=== PATIENT | female | born 1955 | race Caucasian/White ===

== ENCOUNTER → 2016-09-29 | Outpatient (CLI) | payer MEDICARE, OTHER ==
[~2016-09-29] MED LIST: ALIGN4 M1 PO; AMITRIPTYLINE100 MG ORAL; AMITRIPTYLINE25 MG PO; ASPIRIN EC81 MG PO; ATARAX25 MG ORAL; BACLOFEN10 MG ORAL; CRESTOR20 MG ORAL; CRESTOR40 MG ORAL; CYCLOBENZAPRINE10 MG PO; ETODOLAC400 MG PO; HYDROCORTISONE28 G5 TP; HYZAAR PO; LORATADINE10 M2 PO; NEXIUM40 MG PO; OMEPRAZOLE40 M1 ORAL; PRAVACHOL80 MG PO; RELAFEN750 MG PO
[2016-09-29 11:52] LABS: BASOPHILS % (AUTO) 0.7 % (0.0-2.0); EOSINOPHILS % (AUTO) 0.6 % (0.0-3.0); LYMPHOCYTES % (AUTO) 28.4 % (20.0-45.0); MEAN CORPUSCULAR HEMOGLOBIN 29.8 PG (27.0-31.0); MEAN CORPUSCULAR HGB CONC 32.5 G/DL (32.0-36.0); MEAN CORPUSCULAR VOLUME 92 FL (80-99); MEAN PLATELET VOLUME 7.9 FL (6.5-10.1); MONOCYTES % (AUTO) 5.7 % (1.0-10.0); NEUTROPHILS % (AUTO) 64.6 % (45.0-75.0); PLATELET COUNT 288 K/UL (150-450); RED CELL DISTRIBUTION WIDTH 12.3 % (11.6-14.8); WHITE BLOOD COUNT 9.2 K/UL (4.8-10.8)
[2016-09-29 12:01] LABS: ALANINE AMINOTRANSFERASE 11 U/L (3-33); ALBUMIN/GLOBULIN RATIO 1.2 (1.0-2.7); ANION GAP 11 (5-15); ASPARTATE AMINO TRANSFERASE 18 U/L (5-40); CALCIUM 9.2 mg/dL (8.6-10.2); CARBON DIOXIDE 33 mEQ/L (20-30); CHLORIDE 96 mEQ/L (98-107); CHOLESTEROL 238 mg/dL (< 200); CHOLESTEROL/HDL RATIO 4.5 (3.3-4.4); CREATININE 0.8 mg/dL (0.5-0.9); GLOMERULAR FILTRATION RATE > 60 mL/min (>60); HEMOLYSIS 6; LDL CHOLESTEROL (CALC.) 146 mg/dL (60-99); POTASSIUM 4.3 mEQ/L (3.4-4.9); SODIUM 140 mEQ/L (135-145); TOTAL PROTEIN 7.3 g/dL (6.6-8.7)
[2016-09-29 12:03] LABS: HEMOGLOBIN A1C 5.4 % (< 6.0)
[2016-09-29 12:06] LABS: APPEARANCE,URINE CLOUDY; KETONES,URINE NEGATIVE (NEGATIVE); LEUKOCYTE ESTERASE ,URINE NEGATIVE (NEGATIVE); NITRITE,URINE NEGATIVE (NEGATIVE); PH,URINE 8 (4.5-8.0); PROTEIN,URINE NEGATIVE (NEGATIVE); UROBILINOGEN,URINE NORMAL MG/DL (0.0-1.0)
[2016-09-29 12:19] LABS: AMORPHOUS SEDIMENT,UR MODERATE /LPF; BACTERIA,URINE FEW /HPF; RBC,URINE 0-2 /HPF (0 - 2); SQUAMOUS EPITHELIAL CELL,UR FEW /LPF (NONE/OCC); WBC,URINE 0-2 /HPF (0 - 2)
== END | disposition home or self-care (01) ==
LOC: LAB 11:18
DX: I10 Essential (primary) hypertension (principal); E78.2 Mixed hyperlipidemia
CPT/HCPCS: 36415; 80053; 80061; 81001; 83036; 85025

== ENCOUNTER 2016-12-18 18:07 | Emergency (ER) | payer MEDICARE, OTHER ==
[~2016-12-18] VITALS: Ht 160 cm; Wt 72.6 kg
[2016-12-18] MEDS ORDERED: Vancomycin 1 GM in NS 275 ML IV ONE (18:30)
[2016-12-18] MEDS ORDERED: Piperacillin/Tazobactam 3.375 GM in NS 110 ML IV ONE (18:30)
[2016-12-18] MEDS ORDERED: Azithromycin 500 MG in NS 275 ML IV ONE (18:30)
[2016-12-18] MEDS ORDERED: Clindamycin 150mg cap ORAL STA (18:38)
--- NOTE | 2016-12-18 18:47 | Emergency Room Report ---
History of Present Illness General Chief Complaint: General Complaint Source: Patient Present Illness HPI The patient presents with several problems. One is that she has upper respiratory illness with green phlegm. She also has R ear pain and a sore throat with some dental pain. The pain was 11/10 yesterday but is slightly better today. She also has been wheezing a little bit. She has used an inhaler before, but not now and sometimes smokes. Has nebulizer at home. Had deep cleaning of teeth and treated with BID antibiotics 11/13- in [place]. She recently traveled back from [facility] and right ear November 3. 3 days ago she started having some redness and swelling on her left ankle area. This is swelling or calf. This is a stinging pain. Never had blood clots before. Bruising inner L elbow. No known trauma. She denies any chest pain. No NVD, dysuria. Allergies: Coded Allergies: CIPROFLOXACIN (Verified Allergy, Anaphylaxis, 06/25/12) Patient History Past Medical History: see triage record Social History: Reports: smoking Social History Narrative disabled Reviewed Nursing Documentation: PMH: Agreed, PSxH: Agreed Nursing Documentation-PMH Hx Cardiac Problems: Yes Hx Hypertension: Yes Hx Cancer: No Hx Gastrointestinal Problems: Yes Hx Neurological Problems: Yes - MIGRAINES Hx Dizziness: Yes Review of Systems All Other Systems: negative except mentioned in HPI Physical Exam Vital Signs Date Time Temp Pulse Resp B/P Pulse Ox O2 Delivery O2 Flow Rate FiO2 12/18/16 18:11 97.9 89 20 164/106 96 Room Air Sp02 EP Interpretation: reviewed, normal, other - slightly low, but smoker General Appearance: well appearing, no apparent distress, GCS 15 Head: normocephalic Eyes: bilateral eye PERRL, bilateral eye normal inspection ENT: normal pharynx, moist mucus membranes - poor dentition, other - R TM with fluid, no erythema but opaque, L normal Neck: supple, no meningismus Respiratory: no respiratory distress, wheezing, expiration Cardiovascular #1: regular rate, rhythm, no edema Cardiovascular #2: 2+ radial (R) Gastrointestinal: normal inspection, normal bowel sounds, non tender, no mass, non-distended Musculoskeletal: digits/nails normal, gait/station normal, normal range of motion, no calf tenderness, Karla's Sign negative, inflammation - see skin Neurologic: alert, oriented x3, grossly normal Psychiatric: mood/affect normal Skin: normal color, other - erythema medial maleolus with TTP. Areas of some possible bruising L inner elbow. Medical Decision Making Diagnostic Impression: Primary Impression: Otitis media Qualified Codes: H66.001 - Acute suppurative otitis media without spontaneous rupture of ear drum, right ear Additional Impressions: Bronchospasm Superficial phlebitis ER Course Patient with URI sy and ear pain with lesion L ankle and possible bruising. Complicated patient with need to exclude cardiac asthma. Doubt SBE. DDx: bronchitis, pneumonia, asthma, otitis, superficial phlebitis versus cellulitis. No evidence of DVT on exam. Need to exclude coagulopathy. Patient needs treatment for bronchospasm. Clearly R ear infection and indication for antibiotics. Need to cover URI and possible cellulitis of L ankle. EKG normal. CXR no infiltrates. Labs unremarkable. No eosinophilia, doubt steroids would help. Improved with treatment. + cough. Patient stable for outpatient observation and treatment. Laboratory Tests Test 12/18/16 18:15 12/18/16 18:45 Urine Color Yellow Urine Appearance Clear Urine pH 5 (4.5-8.0) Urine Specific [place] 1.030 (1.005-1.035) Urine Protein Negative (NEGATIVE) Urine Glucose (UA) Negative (NEGATIVE) Urine Ketones 1+ (NEGATIVE) H Urine Occult Blood Negative (NEGATIVE) Urine Nitrite Negative (NEGATIVE) Urine Bilirubin 1+ (NEGATIVE) H Urine Ictotest Negative Urine Urobilinogen 1 MG/DL (0.0-1.0) H Urine Leukocyte Esterase 1+ (NEGATIVE) H Urine RBC 0-2 /HPF (0 - 2) Urine WBC 2-4 /HPF (0 - 2) Urine Squamous Epithelial Cells Few /LPF (NONE/OCC) Urine Bacteria Few /HPF (NONE) Urine Yeast Few /HPF (NONE) H White Blood Count 8.1 K/UL (4.8-10.8) Red Blood Count 4.35 M/UL (4.20-5.40) Hemoglobin 14.0 G/DL (12.0-16.0) Hematocrit 39.6 % (37.0-47.0) Mean Corpuscular Volume 91 FL (80-99) Mean Corpuscular Hemoglobin 32.1 PG (27.0-31.0) H Mean Corpuscular Hemoglobin Concent 35.3 G/DL (32.0-36.0) Red Cell Distribution Width 11.5 % (11.6-14.8) L Platelet Count 233 K/UL (150-450) Mean Platelet Volume 7.7 FL (6.5-10.1) Neutrophils (%) (Auto) 56.7 % (45.0-75.0) Lymphocytes (%) (Auto) 35.1 % (20.0-45.0) Monocytes (%) (Auto) 6.2 % (1.0-10.0) Eosinophils (%) (Auto) 0.9 % (0.0-3.0) Basophils (%) (Auto) 1.0 % (0.0-2.0) Prothrombin Time 9.8 SEC (9.30-11.50) Prothrombin Time INR 1.0 (0.9-1.1) PTT 28 SEC (23-33) Sodium Level 143 mEQ/L (135-145) Potassium Level 3.5 mEQ/L (3.4-4.9) Chloride Level 101 mEQ/L (98-107) Carbon Dioxide Level 29 mEQ/L (20-30) Anion Gap 13 (5-15) Blood Urea Nitrogen 14 mg/dL (7-23) Creatinine 0.9 mg/dL (0.5-0.9) Estimate Glomerular Filtration Rate > 60 mL/min (>60) Glucose Level 132 mg/dL (74-106) H Calcium Level 8.9 mg/dL (8.6-10.2) Total Bilirubin 0.2 mg/dL (0.0-1.2) Aspartate Amino Transferase (AST) 19 U/L (5-40) Alanine Aminotransferase (ALT) 13 U/L (3-33) Alkaline Phosphatase 91 U/L (35-104) Total Creatine Kinase 99 U/L (26-140) Troponin I < 0.30 ng/mL (<=0.30) Total Protein 6.9 g/dL (6.6-8.7) Albumin 3.7 g/dL (3.5-5.2) Globulin 3.2 g/dL Albumin/Globulin Ratio 1.1 (1.0-2.7) EKG Diagnostic Results Rate: normal Rhythm: NSR ST Segments: no acute changes - incomplete RBBB Rhythm Strip Diag. Results EP Interpretation: yes Rhythm: NSR, no PVC's, no ectopy Chest X-Ray Diagnostic Results EP Interpretation: Yes Findings: no consolidation, no effusion, no pneumothorax, no acute cardiopulmonary disease Number of Views: 1 Last Vital Signs Date Time Temp Pulse Resp B/P Pulse Ox O2 Delivery O2 Flow Rate FiO2 12/18/16 22:03 97.9 84 21 124/73 98 Room Air Status: improved Disposition: HOME, SELF-CARE Condition: Improved Scripts Chlorpheniramine Maleate (CHLOR-TRIMETON) 4 Mg Tablet 4 MG PO Q6HR Y for ear pain or congestion, #10 TAB Prov: Bob Cha M.D. 12/18/16 Albuterol Sulfate* (ALBUTEROL SULFATE HHN*) 2.5 Mg/3 Ml Vial.neb 2.5 MG HHN Q4H Y for Shortness of Breath, #25 VIAL Prov: Bob Cha M.D. 12/18/16 Albuterol Sulfate* (ALBUTEROL SULFATE MDI*) 8.5 Gm Hfa.aer.ad 2 PUFF INH Q6H, #1 EA 0 Refills Prov: Bob Cha M.D. 12/18/16 Guaifenesin/Codeine Phos* (ROBITUSSIN AC*) 118 Ml Liquid 1 TSP ORAL Q6H Y for For Cough, #118 ML 0 Refills Prov: Bob Cha M.D. 12/18/16 Levofloxacin* (LEVAQUIN*) 500 Mg Tablet 500 MG ORAL DAILY, #7 TAB Prov: Bob Cha M.D. 12/18/16 Bob Cha M.D. December 18, 2016 18:47
[2016-12-18] MEDS ORDERED: Albuterol ud Inhalation HHN ONE (19:00)
[2016-12-18] MEDS ORDERED: Ipratropium 0.02% Inh Soln 2.5ml UD HHN ONE (19:00)
[2016-12-18 19:05] VITALS: BP 151/81
[2016-12-18 19:15] LABS: EOSINOPHILS % (AUTO) 0.9 % (0.0-3.0); LYMPHOCYTES % (AUTO) 35.1 % (20.0-45.0); MEAN CORPUSCULAR HEMOGLOBIN 32.1 PG (27.0-31.0); MEAN CORPUSCULAR HGB CONC 35.3 G/DL (32.0-36.0); MEAN CORPUSCULAR VOLUME 91 FL (80-99); MEAN PLATELET VOLUME 7.7 FL (6.5-10.1); MONOCYTES % (AUTO) 6.2 % (1.0-10.0); NEUTROPHILS % (AUTO) 56.7 % (45.0-75.0); PLATELET COUNT 233 K/UL (150-450); RED BLOOD COUNT 4.35 M/UL (4.20-5.40); RED CELL DISTRIBUTION WIDTH 11.5 % (11.6-14.8); WHITE BLOOD COUNT 8.1 K/UL (4.8-10.8)
[2016-12-18 19:21] LABS: APPEARANCE,URINE CLEAR; KETONES,URINE 1+ (NEGATIVE); LEUKOCYTE ESTERASE ,URINE 1+ (NEGATIVE); NITRITE,URINE NEGATIVE (NEGATIVE); PH,URINE 5 (4.5-8.0); PROTEIN,URINE NEGATIVE (NEGATIVE); UROBILINOGEN,URINE 1 MG/DL (0.0-1.0)
[2016-12-18 19:25] LABS: RBC,URINE 0-2 /HPF (0 - 2)
[2016-12-18 19:26] LABS: BACTERIA,URINE FEW /HPF; SQUAMOUS EPITHELIAL CELL,UR FEW /LPF (NONE/OCC); YEAST,URINE FEW /HPF
[2016-12-18 19:28] LABS: ICTOTEST NEGATIVE
[2016-12-18 19:33] LABS: ALANINE AMINOTRANSFERASE 13 U/L (3-33); ALBUMIN/GLOBULIN RATIO 1.1 (1.0-2.7); ANION GAP 13 (5-15); ASPARTATE AMINO TRANSFERASE 19 U/L (5-40); CALCIUM 8.9 mg/dL (8.6-10.2); CARBON DIOXIDE 29 mEQ/L (20-30); CHLORIDE 101 mEQ/L (98-107); CREATININE 0.9 mg/dL (0.5-0.9); GLOMERULAR FILTRATION RATE > 60 mL/min (>60); HEMOLYSIS 6; POTASSIUM 3.5 mEQ/L (3.4-4.9); SODIUM 143 mEQ/L (135-145); TOTAL PROTEIN 6.9 g/dL (6.6-8.7); TROPONIN I < 0.30 ng/mL (<=0.30)
[2016-12-18 19:42] LABS: PROTHROMBIN TIME 9.8 SEC (9.30-11.50)
[2016-12-18 21:19] VITALS: BP 124/73
[2016-12-18] MEDS ORDERED: ALBUTEROL2.5 MG/3 M HHN (21:34)
[2016-12-18] MEDS ORDERED: GUAIFENESIN-CO118 M1 ORAL (21:34)
[2016-12-18] MEDS ORDERED: CHLOR-TRIMETON4 MG PO (21:34)
[2016-12-18] MEDS ORDERED: LEVAQUIN500 MG ORAL (21:34)
[2016-12-18] MEDS ORDERED: ALBUTEROL SULF8.5 GM INH (21:34)
[2016-12-18 22:03] VITALS: BP 124/73
--- NOTE | 2016-12-19 12:51 | Diagnostic Imaging Report ---
Indication: COUGH Technique: One view of the chest Comparison: none Findings: Lungs and pleural spaces are clear. The heart size is normal. There is slightly increased right hilar/suprahilar prominence, adenopathy not excludable. Impression: Cannot rule out right hilar adenopathy. Consider chest CT for further evaluation No acute process otherwise Findings discussed by phone with Dr. Funes in the emergency room at the time of interpretation
--- NOTE | 2016-12-19 18:57 | Cardiology Report ---
APPROVED REPORT EKG Measurement Heart [id number] MA [id number] SEm340 Normal sinus rhythm Incomplete right bundle branch block Borderline ECG
== END 2016-12-18 22:07 | disposition home or self-care (01) ==
LOC: EMR 18:42
DX: H66.91 Otitis media, unspecified, right ear (principal); J39.9 Disease of upper respiratory tract, unspecified; J98.01 Acute bronchospasm; I80.9 Phlebitis and thrombophlebitis of unspecified site; H92.01 Otalgia, right ear; J02.9 Acute pharyngitis, unspecified; K08.89 Other specified disorders of teeth and supporting structures; R06.2 Wheezing; Z88.1 Allergy status to other antibiotic agents; Z86.79 Personal history of other diseases of the circulatory system; I10 Essential (primary) hypertension; Z87.19 Personal history of other diseases of the digestive system; G43.909 Migraine, unspecified, not intractable, without status migrainosus; R42 Dizziness and giddiness; F17.200 Nicotine dependence, unspecified, uncomplicated
CPT/HCPCS: 36415; 71010; 80053; 81003; 82550; 84484; 85025; 85610; 85730; 87086; 93005; 94640; 94664; 99284

== ENCOUNTER 2017-01-14 23:27 | Emergency (ER) | payer MEDICARE, OTHER ==
[~2017-01-14] VITALS: Ht 160 cm; Wt 73.5 kg
[~2017-01-14 23:27] MED LIST changes: +ALBUTEROL SULF8.5 GM INH; +ALBUTEROL2.5 MG/3 M HHN; +CHLOR-TRIMETON4 MG PO; +GUAIFENESIN-CO118 M1 ORAL; +LEVAQUIN500 MG ORAL
[2017-01-14] MEDS ORDERED: CRESTOR20 MG ORAL (23:36)
[2017-01-14 23:48] VITALS: BP 149/86
[2017-01-15 00:09] LABS: APPEARANCE,URINE CLEAR; KETONES,URINE NEGATIVE (NEGATIVE); LEUKOCYTE ESTERASE ,URINE NEGATIVE (NEGATIVE); NITRITE,URINE NEGATIVE (NEGATIVE); PH,URINE 5 (4.5-8.0); PROTEIN,URINE NEGATIVE (NEGATIVE); UROBILINOGEN,URINE NORMAL MG/DL (0.0-1.0)
[2017-01-15] MEDS ORDERED: IBUPROFEN600 MG ORAL (00:26)
--- NOTE | 2017-01-15 00:26 | Emergency Room Report ---
History of Present Illness General Chief Complaint: Pain Source: Patient Present Illness HPI Is a 61-year-old female with hypertension and diabetes. She presents with chief complaint of generalized body pain. Pain localized more to the right side. This is similar pain she's been ongoing for the last couple weeks. She came in today she said she has urinary frequency. No fever chills but no nausea no vomiting. She worried that she may have staph infection of her kidney. When she was 18, she said she was hospitalized for 3 weeks because of this. She thinks this may be the same. She also says she get tingling and numbness to her fingers. She worried that she may be anemic. She had blood work here last month that was completely normal. She just had blood work yesterday at her [facility]. Yet she still think that she is anemic and has staph infection. Allergies: Coded Allergies: CIPROFLOXACIN (Verified Allergy, Anaphylaxis, 06/25/12) Patient History Past Medical History: see triage record, old chart reviewed Past Surgical History: other Pertinent Family History: none Social History: Denies: smoking Now: No : 1 Para: 0 Immunizations: other Reviewed Nursing Documentation: PMH: Agreed, PSxH: Agreed Nursing Documentation-PMH Hx Cardiac Problems: Yes Hx Hypertension: Yes - hyperlipidemia Hx Cancer: No Hx Gastrointestinal Problems: Yes Hx Neurological Problems: Yes - MIGRAINES Hx Dizziness: Yes Review of Systems Eye: Denies: blurred vision, eye pain ENT: Denies: ear pain, nose congestion, throat swelling Respiratory: Reports: cough, Denies: shortness of breath Cardiovascular: Denies: chest pain, palpitations Gastrointestinal: Denies: abdominal pain, diarrhea, nausea, vomiting Genitourinary: Reports: frequency Musculoskeletal: Denies: back pain, joint pain Skin: Denies: rash Neurological: Denies: headache, numbness Endocrine: Denies: increased thirst, increased urine Hematologic/Lymphatic: Denies: easy bruising All Other Systems: negative except mentioned in HPI Physical Exam Vital Signs Date Time Temp Pulse Resp B/P Pulse Ox O2 Delivery O2 Flow Rate FiO2 01/14/17 23:30 98.1 88 16 152/96 97 Room Air vitals with htn Sp02 EP Interpretation: reviewed, normal General Appearance: well appearing, no apparent distress, alert Head: normocephalic, atraumatic Eyes: bilateral eye EOMI, bilateral eye PERRL ENT: hearing grossly normal, normal pharynx Neck: full range of motion, supple, no meningismus Respiratory: chest non-tender, lungs clear, normal breath sounds Cardiovascular #1: regular rate, rhythm, no murmur Gastrointestinal: normal bowel sounds, non tender, no mass, no organomegaly, no bruit, non-distended Musculoskeletal: back normal, gait/station normal, normal range of motion Psychiatric: mood/affect normal Skin: warm/dry Medical Decision Making Diagnostic Impression: Primary Impression: Pain Additional Impression: Urinary frequency ER Course Patient with chronic pain of unknown etiology. She's been here multiple time for different pain complaint. She did be very anxious. I explained to her that there is no evidence of staph infection. There is no evidence of bacteremia. Her urine is completely normal. I told patient that she's not anemic and there is no need to repeat blood work. Last Vital Signs Date Time Temp Pulse Resp B/P Pulse Ox O2 Delivery O2 Flow Rate FiO2 01/14/17 23:30 98.1 88 16 152/96 97 Room Air Status: unchanged Disposition: HOME, SELF-CARE Condition: Stable Referrals: KAM GILLETTE (PCP) Patient Instructions: PAIN, Uncertain Cause (Acute) Additional Instructions: Follow up with your doctor in 7 days. Return if worse. MICHAEL GARCIA M.D. Jan 15, 2017 00:26
[2017-01-15 00:50] VITALS: BP 157/92
== END 2017-01-15 00:55 | disposition home or self-care (01) ==
LOC: EMR 23:38
DX: G89.29 Other chronic pain (principal); R35.0 Frequency of micturition
CPT/HCPCS: 81003; 99282

== ENCOUNTER 2017-02-11 13:09 | Outpatient (CLI) | payer MEDICARE, OTHER ==
[~2017-02-11 13:09] MED LIST changes: +IBUPROFEN600 MG ORAL
[2017-02-11] MEDS ORDERED: LINZESS145 MCG PO (13:32)
[2017-02-11 13:33] VITALS: BP 121/71
--- NOTE | 2017-02-11 15:14 | GI Progress Note ---
Assessment/Plan Problems: (1) Rectal disorder ICD Codes: K62.9 - Disease of anus and rectum, unspecified SNOMED: 1450217 (2) Abdominal pain ICD Codes: R10.9 - Unspecified abdominal pain SNOMED: 79546805 (3) Acid reflux ICD Codes: K21.9 - Gastro-esophageal reflux disease without esophagitis SNOMED: 048506825 Status: stable Status Narrative Seen with Dr. Glynn. Assessment/Plan colonoscopy schedule for 02/18/17. - CLD + TriLyte prep instructions given and acknowledged. protonix + baclofen instructed on Kegel exercises Subjective Subjective occasional abdominal pain GERD >> omeprazole and baclofen Constipation >> Linzess prn. soft stool, but can't defecate requesting a parasite test Objective Last 24 Hour Vital Signs Date Time Temp Pulse Resp B/P Pulse Ox O2 Delivery O2 Flow Rate FiO2 02/11/17 13:33 98.0 67 16 121/71 General Appearance: no apparent distress, alert Cardiovascular: normal peripheral pulses Respiratory/Chest: normal breath sounds, no respiratory distress Abdominal Exam: normal bowel sounds, non tender, soft Extremities: normal range of motion Katy Roman NLilibeth Feb 11, 2017 15:14
== END 2017-02-11 14:20 | disposition home or self-care (01) ==
LOC: PAN 13:09
DX: K21.9 Gastro-esophageal reflux disease without esophagitis (principal); R10.9 Unspecified abdominal pain; K62.9 Disease of anus and rectum, unspecified
CPT/HCPCS: 99211

== ENCOUNTER 2017-02-18 08:20 | Day surgery (SDC) | payer MEDICARE, OTHER ==
[~2017-02-18] VITALS: Ht 160 cm; Wt 72.6 kg
[2017-02-18] VITALS (7 sets, daily range): BP systolic 107–146; BP diastolic 65–86
--- NOTE | 2017-02-18 06:17 | Anethesia Preoperative Eval ---
Anesthesia Pre-op PMH/ROS General Date of Evaluation: Feb 18, 2017 Time of Evaluation: 06:14 Anesthesiologist: frederick ASA Score: ASA 3 Mallampati Score Class I : Soft palate, uvula, fauces, pillars visible Class II: Soft palate, uvula, fauces visible Class III: Soft palate, base of uvula visible Class IV: Only hard plate visible Mallampati Classification: Class II Surgeon: bria Diagnosis: colon screening, anemia Surgical Procedure: colon screening Anesthesia History: none Family History: no anesthesia problems Allergies: Coded Allergies: CIPROFLOXACIN (Verified Allergy, Severe, Anaphylaxis, 02/17/17) short of breath, swollen tongue Medications: see eMAR Past Medical History Cardiovascular: Reports: HTN Pulmonary: Reports: asthma Gastrointestinal/Genitourinary: Reports: GERD Endocrine: Reports: hypothyroidism Hematology/Immune: Reports: anemia Anesthesia Pre-op Phys. Exam Physician Exam Constitutional: NAD Neurologic: CN 2-12 intact Cardiovascular: RRR Respiratory: CTA Gastrointestinal: S/NT/ND Airway Exam Mallampati Score: Class II MO: full Neck: supple TMD: 2fb ROM: full Teeth: intact Anesthesia Pre-op A/P Risk Assessment & Plan Assessment: asa3 Plan: mac Status Change Before Surgery: No Pre-Antibiotics Drug: ELENO Stone Feb 18, 2017 06:17
[~2017-02-18 08:20] MED LIST changes: +LINZESS145 MCG PO
--- NOTE | 2017-02-18 10:49 | Pre-Procedure Note/Attestation ---
Pre-Procedure Note/Attestation Complete Prior to Procedure Planned Procedure: not applicable Procedure Narrative: colonoscopy Indications for Procedure Pre-Operative Diagnosis: screening Attestation I attest that I discussed the nature of the procedure; its benefits; risks and complications; and alternatives (and the risks and benefits of such alternatives ), prior to the procedure, with the patient (or the patient's legal career services representative). I attest that, if there was a reasonable possibility of needing a blood transfusion, the patient (or the patient's legal career services representative) was given the [facility] standardized written summary, pursuant to the [place] Blood Safety Act ([place] Health and Safety Code # 1645, as amended). I attest that I re-evaluated the patient just prior to the surgery and that there has been no change in the patient's H&P, except as documented below: LLUVIA GOMEZ Feb 18, 2017 10:49
--- NOTE | 2017-02-18 10:51 | Short Stay Surgery H&P ---
History of Present Illness History of Present Illness Chief Complaint screening colon HPI Vianey Sosa is a 61 year old female who was admitted on for Colon Screening Patient History Allergies: Coded Allergies: CIPROFLOXACIN (Verified Allergy, Severe, Anaphylaxis, 02/17/17) short of breath, swollen tongue PAST MEDICAL HISTORY: (1) Rectal disorder (2) Acid reflux (3) Abdominal pain (4) Otitis media (5) Helicobacter pylori antibody positive (6) Nausea (7) Constipation (8) Dysphagia Past Surgeries: Social History: Medication History Scheduled Amitriptyline HCl (Amitriptyline HCl), 25 MG ORAL BEDTIME, (Reported) Aspirin Ec* (Aspirin Ec*), 81 MG PO DAILY, (Reported) Baclofen* (Baclofen*), 10 MG ORAL QHS, (Reported) Etodolac (Etodolac), 400 MG PO PRN, (Reported) Linaclotide (Linzess), 145 MCG PO PRN, (Reported) Losartan/Hydrochlorothiazide 50-12.5 Tablet* (Hyzaar 50-12.5*), 1 TAB PO DA, ( Reported) Omeprazole (Omeprazole), 40 MG ORAL DAILY, (Reported) Rosuvastatin Calcium* (Crestor*), 40 MG ORAL DAILY, (Reported) Discontinued Medications Cyclobenzaprine Hcl* (Flexeril*), 10 MG PO TID, (Reported) Discontinued Reason: Pt stopped taking med Review of Systems Cardiovascular: Reports: no symptoms Respiratory: Reports: no symptoms Skeletal: Reports: no symptoms Gastrointestinal: Reports: gastro esophageal reflux disease Genitourinary: Reports: no symptoms Neurologic: Reports: no symptoms Endocrine: Reports: no symptoms Hematologic: Reports: no symptoms Physical Exam Vital Signs Last Vital Signs Date Time Temp Pulse Resp B/P Pulse Ox O2 Delivery O2 Flow Rate FiO2 02/18/17 08:55 97.7 64 20 107/69 96 Room Air Skin: normal HENT: normal Heart: normal Lungs: normal Abdomen: normal Extremities: normal Plan Plan of Care colonoscopy Final Diagnosis: Attestation Are the patient's medical conditions optimized for surgery? Attestation Response: yes LLUVIA GOMEZ Feb 18, 2017 10:51
[2017-02-18] MEDS ORDERED: Lidocaine 1% MPF 10mg/ml 5ml ONE (11:00)
[2017-02-18] MEDS ORDERED: Propofol 10mg/ml 20ml IV ONE (11:00)
--- NOTE | 2017-02-18 11:13 | Endoscopy Procedure Note ---
Endoscopy Procedure Note Indication for Procedure: screening Procedures Performed: colonoscopy Operative Findings/Diagnosis: hemorrhoids Specimen: none Pt Tolerated Procedure Well: Yes Estimated Blood Loss: none Anesthesiologist: demarcus Anesthesia: MAC Implant(s) used?: No 50 yrs or older w/o bx or poly: Yes 10yrs. F/U not recommended: Yes If not recommended, why?: Above average risk 10 yrs. F/U needed: Yes 18 years or older w/prev. colo: Yes <3yrs. since last colonoscopy: No LLUVIA GOMEZ Feb 18, 2017 11:13
--- NOTE | 2017-02-18 11:25 | Immediate Post-Op Evaluation ---
Immediate Post-Op Evalulation Immediate Post-Op Evalulation Procedure: colonoscopy Date of Evaluation: Feb 18, 2017 Time of Evaluation: 11:40 IV Fluids: 0.9ns 500ml Blood Products: none Estimated Blood Loss: negligible Blood Pressure Systolic: 111 Blood Pressure Diastolic: 65 Pulse Rate: 55 Respiratory Rate: 18 O2 Sat by Pulse Oximetry: 100 Temperature (Fahrenheit): 96.8 Pain Score (1-10): 0 Nausea: No Vomiting: No Complications none Patient Status: awake, reacts, patent Hydration Status: adequate Drug: ELENO Stone Feb 18, 2017 11:25
--- NOTE | 2017-02-18 11:27 | 48 Hour Post Anesthesia Eval ---
Post Anesthesia Evaluation Procedure: colonoscopy Date of Evaluation: Feb 18, 2017 Time of Evaluation: 11:50 Blood Pressure Systolic: 112 0: 64 Pulse Rate: 56 Respiratory Rate: 18 Temperature (Fahrenheit): 96.8 O2 Sat by Pulse Oximetry: 100 Airway: patent Nausea: No Vomiting: No Pain Intensity: 0 Hydration Status: adequate Cardiopulmonary Status: stable Mental Status/LOC: patient returned to baseline Post-Anesthesia Complications: none Follow-up care needed: N/A ELENO MUNIZ Feb 18, 2017 11:27
[2017-02-18] MEDS ORDERED: Hydromorphone 0.5mg/0.5ml inj IVP PRN (11:30)
[2017-02-18] MEDS ORDERED: Midazolam 2mg/2ml Inj IVP PRN (11:30)
[2017-02-18] MEDS ORDERED: Atropine Inj 1mg/10ml Syr IV PRN (11:30)
[2017-02-18] MEDS ORDERED: DiphenhydrAMINE 50mg/ml Inj IVP PRN (11:30)
--- NOTE | 2017-02-18 14:46 | Procedure Note ---
DATE OF PROCEDURE: 02/18/2017 SURGEON: Robert Glynn M.D. PROCEDURE: Colonoscopy. ANESTHESIOLOGIST: Maureen Méndez M.D. INSTRUMENT: Olympus adult flexible colonoscope. INDICATION: Screening colonoscopy. REASON FOR PROCEDURE: The procedure, risks, benefits, and possible consequences, including hemorrhage, aspiration, perforation and infection, and alternative treatments, were explained to the patient/legal guardian by Dr. Robert Glynn and the patient/legal guardian understood and accepted these risks. PROCEDURE: After informed consent was obtained and the patient was adequately sedated, first rectal exam was performed, which was positive for external and internal hemorrhoids. Then, the scope was advanced from rectum into the cecum, documented by the appendiceal orifice, ileocecal valve, and upper quadrant palpation. Quality of prep was good except for, what I would say, about 10% of the colonic mucosa was covered with a semisolid stool. Examination on those areas might have been incomplete. This is mostly in the area of the descending colon area. The patient otherwise no evidence of any polyps, mass, diverticula or any other pathology. Retroflexion of rectum showed some small internal hemorrhoids. SUMMARY FINDINGS: Internal and external hemorrhoids, otherwise normal colonoscopy examination. RECOMMENDATIONS: Repeat colonoscopy in five years. Robert Glynn M.D. DR: BAILEE JOB#: [id number] CC:
== END 2017-02-18 12:30 | disposition home or self-care (01) ==
LOC: GAS 08:20
DX: Z12.11 Encounter for screening for malignant neoplasm of colon (principal); K64.8 Other hemorrhoids; K64.4 Residual hemorrhoidal skin tags; D64.9 Anemia, unspecified; I10 Essential (primary) hypertension; K21.9 Gastro-esophageal reflux disease without esophagitis; J45.909 Unspecified asthma, uncomplicated; E03.9 Hypothyroidism, unspecified; Z88.3 Allergy status to other anti-infective agents; Z79.82 Long term (current) use of aspirin; Z79.899 Other long term (current) drug therapy
CPT/HCPCS: 93005; G0121; J2704; 94003; 94150

== ENCOUNTER 2017-03-04 14:08 | Outpatient (CLI) | payer MEDICARE, OTHER ==
--- NOTE | 2017-03-04 15:09 | GI Progress Note ---
Assessment/Plan Problems: (1) Breath, foul ICD Codes: R19.6 - Halitosis SNOMED: 60930495 (2) Acid reflux ICD Codes: K21.9 - Gastro-esophageal reflux disease without esophagitis SNOMED: 075500676 (3) Nausea ICD Codes: R11.0 - Nausea SNOMED: 130470457 (4) Abdominal pain ICD Codes: R10.9 - Unspecified abdominal pain SNOMED: 02153626 Status: stable Status Narrative Seen with Dr. Glynn. Assessment/Plan S/P Colonoscopy SUMMARY FINDINGS: Internal and external hemorrhoids, otherwise normal colonoscopy examination. RECOMMENDATIONS: Abdominal U/S reviewed with patient >> Gallbladder Cholesterolosis (NO gallbladder stones. ) ordered breath test change PPI to QOD f/u neurology for ?MRI of spine RTC after BT Repeat colonoscopy in five years. Subjective Subjective colonoscopy review RLQ pain R flank pain denies radiation GERD? bad breath Objective T 98 BP 138/87 P 67 97 RA WT 161.7 denies weight loss General Appearance: no apparent distress, alert Cardiovascular: normal rate Respiratory/Chest: normal breath sounds, no respiratory distress Abdominal Exam: normal bowel sounds, non tender, soft Extremities: normal range of motion Katy Roman N.P. Mar 04, 2017 15:09
== END 2017-03-04 15:05 | disposition home or self-care (01) ==
LOC: PAN 14:08
DX: R19.6 Halitosis (principal); K21.9 Gastro-esophageal reflux disease without esophagitis; R11.0 Nausea; R10.9 Unspecified abdominal pain
CPT/HCPCS: 99211

== ENCOUNTER 2017-04-01 13:40 | Outpatient (CLI) | payer MEDICARE, OTHER ==
--- NOTE | 2017-04-01 14:32 | GI Progress Note ---
Assessment/Plan Problems: (1) Small intestinal bacterial overgrowth ICD Codes: K63.89 - Other specified diseases of intestine SNOMED: 457613149 (2) Abdominal pain ICD Codes: R10.9 - Unspecified abdominal pain SNOMED: 69489192 (3) Acid reflux ICD Codes: K21.9 - Gastro-esophageal reflux disease without esophagitis SNOMED: 779273374 (4) Nausea ICD Codes: R11.0 - Nausea SNOMED: 024885062 Status: stable Status Narrative Seen with Dr. Glynn. Assessment/Plan S/P Colonoscopy SUMMARY FINDINGS: Internal and external hemorrhoids, otherwise normal colonoscopy examination. Abdominal U/S reviewed with patient >> Gallbladder Cholesterolosis (NO gallbladder stones. ) RECOMMENDATIONS: rx Xifaxan PPI QOD RTC x 3 months Repeat colonoscopy in five years. Subjective Subjective abdominal bloating dizziness after taking abx this morning Objective T 98.1 BP 147/77 P 73 98 RA General Appearance: no apparent distress, alert Cardiovascular: normal rate Respiratory/Chest: normal breath sounds, no respiratory distress Abdominal Exam: normal bowel sounds, non tender, soft Extremities: normal range of motion Katy Roman N.P. Apr 01, 2017 14:32
[2017-04-01] MEDS ORDERED: LEXAPRO20 MG ORAL (14:33)
[2017-04-01 15:21] VITALS: BP 147/73
== END 2017-04-01 14:20 | disposition home or self-care (01) ==
LOC: PAN 13:40
DX: A04.8 Other specified bacterial intestinal infections (principal); R10.9 Unspecified abdominal pain; K21.9 Gastro-esophageal reflux disease without esophagitis; R11.0 Nausea; R42 Dizziness and giddiness
CPT/HCPCS: 99211

== ENCOUNTER 2017-06-09 14:15 | Outpatient (CLI) | payer MEDICARE, OTHER ==
[~2017-06-09 14:15] MED LIST changes: +LEXAPRO20 MG ORAL
[2017-06-09 14:25] VITALS: BP 123/76
--- NOTE | 2017-06-09 14:57 | GI Progress Note ---
Assessment/Plan Problems: (1) Small intestinal bacterial overgrowth ICD Codes: K63.89 - Other specified diseases of intestine SNOMED: 807437363 (2) Acid reflux ICD Codes: K21.9 - Gastro-esophageal reflux disease without esophagitis SNOMED: 828905807 (3) Nausea ICD Codes: R11.0 - Nausea SNOMED: 994136742 (4) Abdominal pain ICD Codes: R10.9 - Unspecified abdominal pain SNOMED: 45523456 Status: stable Status Narrative Seen with Dr. Glynn. Assessment/Plan FODMAP diet Rx flexeril RTC x 2 weeks Subjective Subjective GERD abdominal bloating >> SIBO s/p Xifaxan stop eating bread no starch no milk FHx Pancreatic CA Objective Last 24 Hour Vital Signs Date Time Temp Pulse Resp B/P (MAP) Pulse Ox O2 Delivery O2 Flow Rate FiO2 06/09/17 14:25 97.9 75 16 123/76 General Appearance: WD/WN, no apparent distress, alert Cardiovascular: normal rate Respiratory/Chest: normal breath sounds, no respiratory distress Abdominal Exam: normal bowel sounds, non tender, soft Extremities: normal range of motion, non-tender Katy Roman NNickoPNicko Jun 09, 2017 14:57
== END 2017-06-09 15:00 | disposition home or self-care (01) ==
LOC: PAN 14:15
DX: K21.9 Gastro-esophageal reflux disease without esophagitis (principal); A04.8 Other specified bacterial intestinal infections; R11.0 Nausea; R10.9 Unspecified abdominal pain
CPT/HCPCS: 99211

== ENCOUNTER 2017-08-24 13:02 | Outpatient (CLI) | payer MEDICARE, OTHER ==
--- NOTE | 2017-08-24 14:05 | GI Progress Note ---
Assessment/Plan Problems: (1) Small intestinal bacterial overgrowth ICD Codes: K63.89 - Other specified diseases of intestine SNOMED: 614239226 (2) Acid reflux ICD Codes: K21.9 - Gastro-esophageal reflux disease without esophagitis SNOMED: 781697042 (3) Nausea ICD Codes: R11.0 - Nausea SNOMED: 610354202 (4) Abdominal pain ICD Codes: R10.9 - Unspecified abdominal pain SNOMED: 95855888 (5) Breath, foul ICD Codes: R19.6 - Halitosis SNOMED: 51142309 (6) Helicobacter pylori antibody positive ICD Codes: R76.8 - Other specified abnormal immunological findings in serum SNOMED: 212643642 Status: stable Status Narrative Seen with Dr. Glynn. Assessment/Plan s/p Xifaxin with approximately 85% improvement H Pylori positive s/p Tx >> will repeat BT today Add additional Tx of Xifaxan for SIBO RTC x 1 month Subjective Subjective s/p xifaxin, helped with abdominal bloating but now symptoms haev returned Flexeril has helped with the abdominal spasm has not been on the FODmap diet abdominal bloating Objective T 98.2 BP 135/79 P 76 96 RA Denies any unintentional weight loss or changes in dietary habits. General Appearance: WD/WN, no apparent distress, alert Cardiovascular: normal rate Respiratory/Chest: normal breath sounds, no respiratory distress Abdominal Exam: normal bowel sounds, non tender, soft Extremities: normal range of motion, non-tender Katy Roman N.P. Aug 24, 2017 14:05
[2017-08-24 15:22] VITALS: BP 135/79
== END 2017-08-24 13:35 | disposition home or self-care (01) ==
LOC: PAN 13:02
DX: K21.9 Gastro-esophageal reflux disease without esophagitis (principal); R11.0 Nausea; R10.9 Unspecified abdominal pain; R19.6 Halitosis; B96.81 Helicobacter pylori [H. pylori] as the cause of diseases classified elsewhere
CPT/HCPCS: 83013; G0463; 99202

== ENCOUNTER 2017-12-01 09:53 | Outpatient (CLI) | payer MEDICARE, OTHER ==
--- NOTE | 2017-12-01 10:42 | GI Progress Note ---
Assessment/Plan Problems: (1) Diarrhea ICD Codes: R19.7 - Diarrhea, unspecified SNOMED: 82496634 (2) Cholelithiasis ICD Codes: K80.20 - Calculus of gallbladder without cholecystitis without obstruction SNOMED: 408711656 (3) Abdominal pain ICD Codes: R10.9 - Unspecified abdominal pain SNOMED: 99538656 (4) Constipation ICD Codes: K59.00 - Constipation, unspecified SNOMED: 94984356 Status: stable Status Narrative Seen with Dr. Glynn. Assessment/Plan Abdominal U/S results from [facility] reviewed >> noted cholelithiasis d/w with patient >> refuses surgery at this time trial of Ursodiol given refill on Flexeril RTC x 1 month Subjective Subjective abdominal pain, RUQ with radiation to flank constipation vs diarrhea Objective T 97.4 BP 151/83 P 81 98 RA General Appearance: WD/WN, no apparent distress, alert Cardiovascular: normal rate Respiratory/Chest: normal breath sounds, no respiratory distress Abdominal Exam: normal bowel sounds, non tender, soft Extremities: normal range of motion, non-tender Katy Roman N.P. December 01, 2017 10:41
[2017-12-01 11:22] VITALS: BP 151/83
== END 2017-12-01 10:25 | disposition home or self-care (01) ==
LOC: PAN 09:53
DX: K80.20 Calculus of gallbladder without cholecystitis without obstruction (principal); R19.7 Diarrhea, unspecified; R10.9 Unspecified abdominal pain; K59.00 Constipation, unspecified
CPT/HCPCS: 99212

== ENCOUNTER 2017-12-29 09:04 | Outpatient (CLI) | payer MEDICARE, OTHER ==
[2017-12-29 09:21] VITALS: BP 141/77
--- NOTE | 2017-12-29 09:53 | GI Progress Note ---
Assessment/Plan Problems: (1) Abdominal pain ICD Codes: R10.9 - Unspecified abdominal pain SNOMED: 30067247 (2) Cholelithiasis ICD Codes: K80.20 - Calculus of gallbladder without cholecystitis without obstruction SNOMED: 789827151 (3) Constipation ICD Codes: K59.00 - Constipation, unspecified SNOMED: 08556618 (4) Acid reflux ICD Codes: K21.9 - Gastro-esophageal reflux disease without esophagitis SNOMED: 819803048 Status: stable Status Narrative Seen with Dr. Glynn. Assessment/Plan cont ursodio cont ppi add Linzess RTC PRN Subjective Subjective Abdominal pain GERD, more at night constipation, requesting for linzess stated it helped before ursodiol helping with the pain Objective Last 24 Hour Vital Signs Date Time Temp Pulse Resp B/P (MAP) Pulse Ox O2 Delivery O2 Flow Rate FiO2 12/29/17 09:21 98.2 71 16 141/77 98 98.2 General Appearance: WD/WN, no apparent distress, alert Cardiovascular: normal rate Respiratory/Chest: normal breath sounds, no respiratory distress Abdominal Exam: normal bowel sounds, non tender, soft Extremities: normal range of motion, non-tender Peng Roman [employer] Dec 29, 2017 09:53
== END 2017-12-29 09:39 | disposition home or self-care (01) ==
LOC: PAN 09:04
DX: R10.9 Unspecified abdominal pain (principal); K80.20 Calculus of gallbladder without cholecystitis without obstruction; K59.00 Constipation, unspecified; K21.9 Gastro-esophageal reflux disease without esophagitis
CPT/HCPCS: 99212

== ENCOUNTER 2018-08-03 09:38 | Outpatient (CLI) | payer MEDICARE, OTHER ==
[2018-08-03 10:00] VITALS: BP 141/78
--- NOTE | 2018-08-03 10:41 | GI Progress Note ---
Assessment/Plan Problems: (1) Acid reflux ICD Codes: K21.9 - Gastro-esophageal reflux disease without esophagitis SNOMED: 989814714 (2) Abdominal pain ICD Codes: R10.9 - Unspecified abdominal pain SNOMED: 32367476 (3) Cholelithiasis ICD Codes: K80.20 - Calculus of gallbladder without cholecystitis without obstruction SNOMED: 185883529 (4) Nausea ICD Codes: R11.0 - Nausea SNOMED: 433749813 Status: stable Status Narrative Seen with Dr. Glynn. Assessment/Plan Continue current plan of care Labs draws today CBC, CMP, HG A1c, lipid panel;, TSH and free T4, iron panel RTC x 1 month The patient was seen and examined at bedside and all new and available data was reviewed in the patients chart. I agree with the above findings, impression and plan. (Patient seen earlier today. Signature stamp does not reflect patient encounter time.). - Robert Glynn MD Subjective Subjective Has complaint of lower abdominal pain for 3 days. Has right flank pain Has new onset of left upper quadrant pain Has history of ultrasound performed noted with cholelithiasis, currently on ursodiol. Taking omeprazole 20 mg twice daily Has stopped drinking coffee states that her GERD has improved Objective Temperature 98.2 Blood pressure 141/78 Pulse 71 95% room air General Appearance: WD/WN, no apparent distress, alert Cardiovascular: normal rate Respiratory/Chest: normal breath sounds, no respiratory distress Abdominal Exam: normal bowel sounds, non tender, soft Extremities: normal range of motion, non-tender Peng Roman NP Aug 03, 2018 10:41
[2018-08-03 12:50] LABS: BASOPHILS % (AUTO) 0.7 % (0.0-2.0); EOSINOPHILS % (AUTO) 1.1 % (0.0-3.0); HEMATOCRIT 44.2 % (37.0-47.0); HEMOGLOBIN 14.7 G/DL (12.0-16.0); LYMPHOCYTES % (AUTO) 33.3 % (20.0-45.0); MEAN CORPUSCULAR VOLUME 92 FL (80-99); MONOCYTES % (AUTO) 5.3 % (1.0-10.0); NEUTROPHILS % (AUTO) 59.8 % (45.0-75.0); PLATELET COUNT 260 K/UL (150-450); RED BLOOD COUNT 4.83 M/UL (4.20-5.40); RED CELL DISTRIBUTION WIDTH 12.2 % (11.6-14.8); WHITE BLOOD COUNT 6.2 K/UL (4.8-10.8)
[2018-08-03 13:13] LABS: ALANINE AMINOTRANSFERASE 22 U/L (12-78); ALBUMIN 3.4 G/DL (3.4-5.0); ALBUMIN/GLOBULIN RATIO 0.8 (1.0-2.7); ALKALINE PHOSPHATASE 87 U/L (46-116); ANION GAP 7 mmol/L (5-15); ASPARTATE AMINO TRANSFERASE 18 U/L (15-37); BILIRUBIN,TOTAL 0.5 MG/DL (0.2-1.0); BLOOD UREA NITROGEN 12 mg/dL (7-18); CALCIUM 8.5 MG/DL (8.5-10.1); CARBON DIOXIDE 31 MMOL/L (21-32); CHLORIDE 105 MMOL/L (98-107); CHOLESTEROL 250 MG/DL (< 200); CREATININE 0.8 MG/DL (0.55-1.30); HDL CHOLESTEROL 53 MG/DL (40-60); POTASSIUM 3.6 MMOL/L (3.5-5.1); SODIUM 143 MMOL/L (136-145); TRIGLYCERIDES 132 MG/DL (30-150)
[2018-08-03 13:24] LABS: % IRON SATURATION 29 % (15-50); IRON 99 ug/dL (50-175); TOTAL IRON BINDING CAPACITY 346 ug/dL (250-450)
== END 2018-08-03 10:08 | disposition home or self-care (01) ==
LOC: PAN 09:38
DX: K21.9 Gastro-esophageal reflux disease without esophagitis (principal); K80.20 Calculus of gallbladder without cholecystitis without obstruction; R11.0 Nausea; R10.12 Left upper quadrant pain
CPT/HCPCS: 36415; 80053; 80061; 83036; 83540; 83550; 84439; 84443; 85025; G0463; 99213

== ENCOUNTER 2018-09-28 10:22 | Outpatient (CLI) | payer MEDICARE, OTHER ==
[2018-09-28 10:45] VITALS: BP 140/76
--- NOTE | 2018-09-28 11:00 | General Progress Note ---
Assessment/Plan Problem List: (1) Abdominal pain ICD Codes: R10.9 - Unspecified abdominal pain SNOMED: 06073757 (2) Cholelithiasis ICD Codes: K80.20 - Calculus of gallbladder without cholecystitis without obstruction SNOMED: 709597178 (3) Acid reflux ICD Codes: K21.9 - Gastro-esophageal reflux disease without esophagitis SNOMED: 971318215 (4) Constipation ICD Codes: K59.00 - Constipation, unspecified SNOMED: 30787690 (5) Small intestinal bacterial overgrowth ICD Codes: K63.89 - Other specified diseases of intestine SNOMED: 250736862 Assessment/Plan baclofen cont ppi cont actigal flexoril crestor 10 mg RTC 3 months Subjective ROS Limited/Unobtainable: Yes Allergies: Coded Allergies: CIPROFLOXACIN (Verified Allergy, Severe, Anaphylaxis, 02/17/17) short of breath, swollen tongue Objective General Appearance: alert EENT: normal ENT inspection Neck: supple Cardiovascular: normal rate Respiratory/Chest: lungs clear Abdomen: normal bowel sounds, non tender, soft Extremities: non-tender Robert Glynn MD Sep 28, 2018 11:00
[2018-09-28] MEDS ORDERED: ACTIGALL300 MG ORAL (14:08)
== END 2018-09-28 12:26 | disposition home or self-care (01) ==
LOC: PAN 10:22
DX: R10.9 Unspecified abdominal pain (principal); K80.20 Calculus of gallbladder without cholecystitis without obstruction; K21.9 Gastro-esophageal reflux disease without esophagitis; K59.00 Constipation, unspecified; K63.89 Other specified diseases of intestine

== ENCOUNTER 2018-11-30 09:19 | Outpatient (CLI) | payer MEDICARE, OTHER ==
[~2018-11-30 09:19] MED LIST changes: +ACTIGALL300 MG ORAL
[2018-11-30 09:35] VITALS: BP 134/96
--- NOTE | 2018-11-30 09:49 | General Progress Note ---
Assessment/Plan Problem List: (1) Small intestinal bacterial overgrowth ICD Codes: K63.89 - Other specified diseases of intestine SNOMED: 521727152 (2) Acid reflux ICD Codes: K21.9 - Gastro-esophageal reflux disease without esophagitis SNOMED: 660650075 (3) Abdominal pain ICD Codes: R10.9 - Unspecified abdominal pain SNOMED: 33043671 (4) Cholelithiasis ICD Codes: K80.20 - Calculus of gallbladder without cholecystitis without obstruction SNOMED: 979443734 (5) Constipation ICD Codes: K59.00 - Constipation, unspecified SNOMED: 62515480 (6) Helicobacter pylori antibody positive ICD Codes: R76.8 - Other specified abnormal immunological findings in serum SNOMED: 241298316 Assessment/Plan: cont ursodiol, linzess, omeprazole, baclofen add Zenpepp and anusol HC RTC 3 months Subjective ROS Limited/Unobtainable: Yes Allergies: Coded Allergies: CIPROFLOXACIN (Verified Allergy, Severe, Anaphylaxis, 02/17/17) short of breath, swollen tongue Subjective c/o bloading Objective General Appearance: alert EENT: normal ENT inspection Neck: supple Cardiovascular: normal rate Respiratory/Chest: lungs clear Abdomen: normal bowel sounds, non tender, soft Extremities: non-tender Robert Glynn MD November 30, 2018 09:48
== END 2018-11-30 12:56 | disposition home or self-care (01) ==
LOC: PAN 09:19
DX: K21.9 Gastro-esophageal reflux disease without esophagitis (principal); K63.89 Other specified diseases of intestine; R10.9 Unspecified abdominal pain; K80.20 Calculus of gallbladder without cholecystitis without obstruction; K59.00 Constipation, unspecified; R76.8 Other specified abnormal immunological findings in serum; Z88.8 Allergy status to other drugs, medicaments and biological substances; R14.0 Abdominal distension (gaseous)
CPT/HCPCS: 99212

== ENCOUNTER 2019-03-23 14:01 | Outpatient (CLI) | payer MEDICARE, OTHER ==
--- NOTE | 2019-03-23 14:23 | GI Progress Note ---
Assessment/Plan Problems: (1) Abdominal pain ICD Codes: R10.9 - Unspecified abdominal pain SNOMED: 59150584 (2) Acid reflux ICD Codes: K21.9 - Gastro-esophageal reflux disease without esophagitis SNOMED: 190957967 (3) Constipation ICD Codes: K59.00 - Constipation, unspecified SNOMED: 49378359 (4) Small intestinal bacterial overgrowth ICD Codes: K63.89 - Other specified diseases of intestine SNOMED: 660089190 (5) Helicobacter pylori antibody positive ICD Codes: R76.8 - Other specified abnormal immunological findings in serum SNOMED: 674186901 Status: doing well, stable Status Narrative Discussed with Dr. Glynn. Assessment/Plan Cont current plan of care zenpep baclofen prn ursodiol linzess RTC x 6 months The patient was seen and examined at bedside and all new and available data was reviewed in the patients chart. I agree with the above findings, impression and plan. (Patient seen earlier today. Signature stamp does not reflect patient encounter time.). - Robert Glynn MD Subjective Gastrointestinal/Abdominal: Reports: no symptoms Subjective feeling great states nicole has worked for her constipation medications are good denies any abdominal pain Objective T 97 BP 121/72 P 75 94 RA General Appearance: WD/WN, no apparent distress, alert Cardiovascular: normal rate Respiratory/Chest: normal breath sounds, no respiratory distress Abdominal Exam: normal bowel sounds, non tender, soft Extremities: normal range of motion, non-tender Peng Roman NP Mar 23, 2019 14:23
== END 2019-03-23 16:01 | disposition home or self-care (01) ==
LOC: PAN 14:01
DX: R10.9 Unspecified abdominal pain (principal); K21.9 Gastro-esophageal reflux disease without esophagitis; K59.00 Constipation, unspecified; K63.89 Other specified diseases of intestine; R76.8 Other specified abnormal immunological findings in serum

== ENCOUNTER 2020-04-03 11:08 | Outpatient (CLI) | payer MEDICARE, OTHER ==
--- NOTE | 2020-04-03 11:45 | General Progress Note ---
Assessment/Plan Assessment/Plan: (1) Abdominal pain ICD Codes: R10.9 - Unspecified abdominal pain SNOMED: 70543948 (2) Acid reflux ICD Codes: K21.9 - Gastro-esophageal reflux disease without esophagitis SNOMED: 054331289 (3) Constipation ICD Codes: K59.00 - Constipation, unspecified SNOMED: 71012118 (4) Small intestinal bacterial overgrowth ICD Codes: K63.89 - Other specified diseases of intestine SNOMED: 337736801 (5) Helicobacter pylori antibody positive ICD Codes: R76.8 - Other specified abnormal immunological findings in serum SNOMED: 650572509 Status: doing well, stable Status Narrative Discussed with Dr. Glynn. Assessment/Plan Cont current plan of care zenpep baclofen omeprazole BID linzess RTC x 6 months Subjective ROS Limited/Unobtainable: No Allergies: Coded Allergies: CIPROFLOXACIN (Verified Allergy, Severe, Anaphylaxis, 02/17/17) short of breath, swollen tongue Objective General Appearance: alert EENT: normal ENT inspection Neck: supple Cardiovascular: normal rate Respiratory/Chest: decreased breath sounds Abdomen: normal bowel sounds, non tender, soft Extremities: non-tender Robert Glynn MD Apr 03, 2020 11:45
== END 2020-04-03 13:08 | disposition home or self-care (01) ==
LOC: PAN 11:08
DX: R10.9 Unspecified abdominal pain (principal); K21.9 Gastro-esophageal reflux disease without esophagitis; K59.00 Constipation, unspecified; K63.89 Other specified diseases of intestine; R76.8 Other specified abnormal immunological findings in serum; Z88.8 Allergy status to other drugs, medicaments and biological substances
CPT/HCPCS: 99212